=== PATIENT | male | born 1990 | race Caucasian/White ===

== ENCOUNTER 2017-05-28 17:56 | Emergency (ER) | payer SELFPAY ==
[~2017-05-28] VITALS: Ht 177.8 cm; Wt 79.7 kg
[2017-05-28 17:58] VITALS: BP 133/73; PULSE 82; RESP 18; TEMP 98.1; O2SAT 99
[2017-05-28] MEDS ORDERED: SODIUM CHLOR 0.9% 1000 ML INJ 1,000 ML IV SCH (18:14)
[2017-05-28] MEDS ORDERED: FAMOTIDINE 20 MG/2 ML VIAL IV PUSH ONE (18:15)
[2017-05-28] MEDS ORDERED: ONDANSETRON HCL 4 MG/2 ML VIAL IVP ONE (18:15)
[2017-05-28] MEDS ORDERED: SODIUM CHLORIDE 0.9% FLUSH 10 ML FLUSH IV FLUSH PRN (18:15)
[2017-05-28 18:36] VITALS: O2SAT 99
[2017-05-28 18:41] LABS: AUTOMATED NEUTROPHIL # 6.9 TH/MM3 (1.8-7.7); BASOPHIL # 0.1 TH/MM3 (0-0.2); BASOPHIL % 1.7 % (0.0-2.0); EOSINOPHIL % 0.4 % (0.0-4.0); HEMATOCRIT 45.2 % (39.0-51.0); LYMPH % 4.1 % (9.0-44.0); LYMPHOCYTE # 0.3 TH/MM3 (1.0-4.8); MEAN CELL VOLUME 89.3 FL (80.0-100.0); MEAN CORPUSCULAR HEMOGLOBIN 29.6 PG (27.0-34.0); MEAN CORPUSCULAR HGB CONC 33.2 % (32.0-36.0); MEAN PLATELET VOLUME 10.5 FL (7.0-11.0); MONO % 8.4 % (0.0-8.0); MONOCYTE # 0.7 TH/MM3 (0-0.9); NEUT % 85.4 % (16.0-70.0); PLATELET COUNT 149 TH/MM3 (150-450); RED BLOOD COUNT 5.06 MIL/MM3 (4.50-5.90); RED CELL DISTRIBUTION WIDTH 11.8 % (11.6-17.2)
[2017-05-28 18:42] VITALS: BP 140/66; PULSE 77; RESP 20; O2SAT 99
[2017-05-28 18:52] LABS: CHLORIDE 105 MEQ/L (98-107); SODIUM (NA) 139 MEQ/L (136-145)
[2017-05-28 18:55] LABS: CALCIUM 9.4 MG/DL (8.5-10.1)
[2017-05-28 18:56] VITALS: BP_SYST 105; BP_SYST 137; BP_DIAS 57; BP_DIAS 64; PULSE 74; PULSE 88; RESP 16; RESP 18; O2SAT 100; O2SAT 98
[2017-05-28 18:56] LABS: ALBUMIN 4.5 GM/DL (3.4-5.0); BICARBONATE 23.7 MEQ/L (21.0-32.0); BLOOD UREA NITROGEN 20 MG/DL (7-18); GLUCOSE,RANDOM 114 MG/DL (74-106)
[2017-05-28 18:59] LABS: ALT (GPT) 38 U/L (12-78); AST (GOT) 18 U/L (15-37); GLOMERULAR FILTRATION RATE 56 ML/MIN (>89)
[2017-05-28 19:00] LABS: TOTAL BILIRUBIN ADULT 0.4 MG/DL (0.2-1.0)
[2017-05-28 19:02] LABS: ALKALINE PHOSPHATASE 85 U/L (45-117)
[2017-05-28] MEDS ORDERED: ZOFR4TAB3 SL (20:00)
--- NOTE | 2017-05-28 20:00 | PD ---
HPI Chief Complaint: Abdominal Pain Time Seen by Provider: 18:06 Travel History International Travel<30 days: No Contact w/Intl Traveler<30days: No Traveled to known affect area: No History of Present Illness HPI Patient is a 26-year-old male who comes in complaining of nausea and vomiting since this morning. He says he came home from work last night feeling ill. He reports multiple sick contacts. Today and has not been able to keep anything down. He denies diarrhea. He says he has been having normal bowel movements. He denies fever or chills. He denies any abdominal pain. He says it has been mostly food and fluids that he has vomited. [facility] Social History Alcohol Use: No Tobacco Use: Yes Substance Use: No Allergies-Medications (Allergen,Severity, Reaction): Coded Allergies: No Known Allergies (Unverified , 05/28/17) Reported Meds & Prescriptions Reported Meds & Active Scripts Active No Active Prescriptions or Reported Medications Review of Systems Except as stated in HPI: all other systems reviewed are Neg General / Constitutional: No: Fever, Chills HENT: Positive: Headaches, No: Lightheadedness Cardiovascular: No: Chest Pain or Discomfort Respiratory: No: Shortness of Breath Gastrointestinal: Positive: Nausea, Vomiting, No: Abdominal Pain Genitourinary: No: Dysuria Musculoskeletal: No: Myalgias, Edema Skin: No Rash, No Change in Pigmentation Neurologic: No: Weakness, Dizziness Physical Exam Narrative GENERAL: Awake and alert, in no acute distress. SKIN: Focused skin assessment warm/dry. No wounds or signs of infection. HEAD: Atraumatic. Normocephalic. EYES: Pupils equal and round. No scleral icterus. ENT: Mucous membranes pink and moist. NECK: Trachea midline. No JVD. CARDIOVASCULAR: Regular rate and rhythm. No murmur appreciated. RESPIRATORY: No accessory muscle use. Clear to auscultation. Breath sounds equal bilaterally. GASTROINTESTINAL: Abdomen soft, non-tender, nondistended. MUSCULOSKELETAL: No obvious deformities. No clubbing. No cyanosis. No edema. NEUROLOGICAL: Awake and alert. No obvious cranial nerve deficits. Motor grossly within normal limits. Normal speech. PSYCHIATRIC: Appropriate mood and affect; insight and judgment normal. Data Data Last Documented VS Vital Signs Date Time Temp Pulse Resp B/P (MAP) Pulse Ox O2 Delivery O2 Flow Rate FiO2 05/28/17 18:56 88 18 137/64 (88) 100 Room Air 05/28/17 17:58 98.1 Orders Orders Complete Blood Count With Diff (05/28/17 18:14) Comprehensive Metabolic Panel (05/28/17 18:14) Iv Access Insert/Monitor (05/28/17 18:14) Ecg Monitoring (05/28/17 18:14) Oximetry (05/28/17 18:14) Ondansetron Inj (Zofran Inj) (05/28/17 18:15) Sodium Chlor 0.9% 1000 Ml Inj (Ns 1000 M (05/28/17 18:14) Sodium Chloride 0.9% Flush (Ns Flush) (05/28/17 18:15) Famotidine Inj (Pepcid Inj) (05/28/17 18:15) Labs Laboratory Tests Test 05/28/17 18:30 White Blood Count 8.0 TH/MM3 Red Blood Count 5.06 MIL/MM3 Hemoglobin 15.0 GM/DL Hematocrit 45.2 % Mean Corpuscular Volume 89.3 FL Mean Corpuscular Hemoglobin 29.6 PG Mean Corpuscular Hemoglobin Concent 33.2 % Red Cell Distribution Width 11.8 % Platelet Count 149 TH/MM3 Mean Platelet Volume 10.5 FL Neutrophils (%) (Auto) 85.4 % Lymphocytes (%) (Auto) 4.1 % Monocytes (%) (Auto) 8.4 % Eosinophils (%) (Auto) 0.4 % Basophils (%) (Auto) 1.7 % Neutrophils # (Auto) 6.9 TH/MM3 Lymphocytes # (Auto) 0.3 TH/MM3 Monocytes # (Auto) 0.7 TH/MM3 Eosinophils # (Auto) 0.0 TH/MM3 Basophils # (Auto) 0.1 TH/MM3 CBC Comment DIFF FINAL Differential Comment Blood Urea Nitrogen 20 MG/DL Creatinine 1.50 MG/DL Random Glucose 114 MG/DL Total Protein 8.0 GM/DL Albumin 4.5 GM/DL Calcium Level 9.4 MG/DL Alkaline Phosphatase 85 U/L Aspartate Amino Transf (AST/SGOT) 18 U/L Alanine Aminotransferase (ALT/SGPT) 38 U/L Total Bilirubin 0.4 MG/DL Sodium Level 139 MEQ/L Potassium Level 3.6 MEQ/L Chloride Level 105 MEQ/L Carbon Dioxide Level 23.7 MEQ/L Anion Gap 10 MEQ/L Estimat Glomerular Filtration Rate 56 ML/MIN MDM Medical Decision Making Medical Screen Exam Complete: Yes Emergency Medical Condition: Yes Differential Diagnosis gastritis vs gastroenteritis vs electrolyte abnormalities vs dehydration Narrative Course Patient is a 26-year-old male comes in complaining of nausea and vomiting. Exam shows no tenderness to palpation of the abdomen. IV established, labs sent. Labs show an elevated creatinine and BUN, suggestive of dehydration. Patient given IV fluids and Zofran. He does report feeling better. He was able to drink Gatorade without vomiting. He'll be discharged with a prescription for Zofran. Advised to drink plenty of fluids. Advised follow-up with a primary care doctor. Advised to eat a bland diet if he feels hungry. Advised to return to the ED as needed for any worsening symptoms. Diagnosis Primary Impression: Nausea & vomiting Qualified Codes: R11.2 - Nausea with vomiting, unspecified Patient Instructions: Acute Nausea and Vomiting (ED), General Instructions Additional Instructions: Take Zofran as needed for nausea. Drink plenty of fluids. Eat a bland diet if you are feeling hungry. Follow-up with a primary care doctor. Return to the ED as needed for any worsening symptoms. Scripts Ondansetron Odt (Zofran Odt) 4 Mg Tab 4 MG SL Q6HR Y for Nausea/Vomiting, #12 TAB 0 Refills Prov: Emily Humphreys MD 05/28/17 Disposition: 01 DISCHARGE HOME Condition: Stable Emily Humphreys MD May 28, 2017 20:00
[2017-05-28 20:35] VITALS: BP 141/71
== END 2017-05-28 20:41 | disposition home or self-care (01) ==
LOC: PHED 17:56
DX: R11.2 Nausea with vomiting, unspecified (principal); Z72.0 Tobacco use
CPT/HCPCS: 80053; 85025; 96361; 96374; 96375; 99283; J2405; J7030